=== PATIENT | female | born 1990 | race Caucasian/White ===

== ENCOUNTER 2018-08-20 04:57 | Emergency (ER) | payer SELFPAY ==
[~2018-08-20] VITALS: Ht 157.5 cm; Wt 40.8 kg
--- NOTE | 2018-08-20 05:13 | NUR ---
TO BED 16 AMBULATORY C/O FEVER AND SORETHROAT X1 DAY. PT ALSO REPORTS THE SHE LEFT HER TAMPON FOR 2 DAYS. PT AAOX4 NO ACUTE DISTRESS NOTED, RESP EVEN AND UNLABORED. PENDING ER MD BURDICK. URINE SAMPLE COLLECTED AND SENT TO LAB.
--- NOTE | 2018-08-20 05:20 | NUR ---
ASSISTED MD AT BEDSIDE WITH PELVIC EXAM.
[2018-08-20] MEDS ORDERED: PIPERACILLIN /TAZOBACTAM 3.375 G VIAL IV ONE (05:23)
[2018-08-20] MEDS ORDERED: IBUPROFEN 400 MG TABLET PO ONE (05:30)
[2018-08-20] MEDS ORDERED: IV NS 0.9% 1,000 ML BAG IV ONE (05:30)
[2018-08-20] MEDS ORDERED: PIPERACILLIN /TAZOBACTAM 3.375 G in IV D5W 50 ML IV ONE (05:30)
[2018-08-20] MEDS ORDERED: CLINDAMYCIN 600 MG in IV D5W 100 ML IV ONE (05:30)
--- NOTE | 2018-08-20 05:30 | NUR ---
GENITAL CULTURE AND RAPID STREP CULTURE OBTAINED AND SENT TO THE LAB.
[2018-08-20 05:46] LABS: BASOPHILS % (AUTO) 0.3 % (0.0-2.0); EOSINOPHILS % (AUTO) 0.3 % (0.0-6.0); HEMATOCRIT 41 % (33-45); HEMOGLOBIN 13.7 g/dL (11.5-14.8); LYMPHOCYTES % (AUTO) 7.1 % (20.0-44.0); MEAN CORPUSCULAR HGB CONC 34 g/dl (31.0-36.0); MEAN CORPUSCULAR VOLUME 90 fL (82-100); MONOCYTES # (AUTO) 0.9 /CMM (0.1-1.30); MONOCYTES % (AUTO) 6.5 % (2.0-12.0); NEUTROPHILS # (AUTO) 11.6 /CMM (1.8-8.9); NEUTROPHILS % (AUTO) 85.8 % (43.0-81.0); PLATELET COUNT (AUTO) 236 /CMM (150-450); RDW COEFFICIENT OF VARIATION 12.1 (11.5-15.0); RED BLOOD CELL COUNT(AUTO) 4.49 MIL/uL (4.0-5.2); WHITE BLOOD COUNT (AUTO) 13.5 K/uL (4.3-11.0)
[2018-08-20 05:56] LABS: CALCIUM, SERUM 8.5 mg/dL (8.5-10.1); CREATININE 0.8 mg/dL (0.6-1.3); POTASSIUM 3.5 mmol/L (3.5-5.1)
[2018-08-20] MEDS ORDERED: IBUPROFEN 400 MG TABLET ONE (05:59)
[2018-08-20 06:15] LABS: APPEARANCE,URINE CLEAR (CLEAR); BILIRUBIN,URINE NEGATIVE (NEGATIVE); BLOOD, URINE TRACE Ery/uL (NEGATIVE); COLOR,URINE YELLOW (YELLOW); KETONES,URINE NEGATIVE (NEGATIVE); LEUKOCYTE ESTERASE ,URINE TRACE (NEGATIVE); NITRITE, URINE NEGATIVE (NEGATIVE); PROTEIN,URINE NEGATIVE (NEGATIVE); UGLUCOSE NEGATIVE (NEGATIVE); UROBILINOGEN,URINE 0.2 EU/dL (0.2)
[2018-08-20 06:22] LABS: BACTERIA,URINE None seen /HPF (None Seen); RBC,URINE 0-2 /HPF (0-2); SQUAMOUS EPITHELIAL CELL,UR Few /HPF (None Seen)
[2018-08-20] MEDS ORDERED: PENICILLIN G BENZATHINE 2.4 MMU/4 ML ML IM ONE ×2 (06:30→06:32)
--- NOTE | 2018-08-20 06:52 | NUR ---
Patient discharged to home in stable condition. Written and verbal after care instructions given. Patient verbalizes understanding of instruction. IV removed. Catheter intact and site benign. Pressure and 4x4 applied to site. No bleeding noted. Pt ambulatory with a steady gait
[2018-08-20 06:53] VITALS: BP 132/68
== END 2018-08-20 06:55 | disposition home or self-care (01) ==
LOC: ER 05:05
DX: J03.90 Acute tonsillitis, unspecified (principal); R50.9 Fever, unspecified; F10.10 Alcohol abuse, uncomplicated; R00.0 Tachycardia, unspecified; Y90.9 Presence of alcohol in blood, level not specified; Z97.5 Presence of (intrauterine) contraceptive device
CPT/HCPCS: 36415; 80048; 81001; 84702; 85025; 87070; 87077; 87086; 87186; 87880; 96372; 99284; A4606; J0558; J2543 ×2; J3490; J7030; J7060 ×2; Z7610; 81000-TC; 86403-TC